=== PATIENT | female | born 1945 | race Caucasian/White ===

== ENCOUNTER 2018-05-21 19:02 | Emergency (ER) | payer MEDICARE, OTHER | END 2018-05-21 22:27 | disposition home or self-care (01) | LOC: FTE 19:02 | DX: R09.89 Other specified symptoms and signs involving the circulatory and respiratory systems (principal); I10 Essential (primary) hypertension; E11.9 Type 2 diabetes mellitus without complications | CPT/HCPCS: 70360; 99283-25 ==